=== PATIENT | female | born 1960 | race African-American/Black ===

== ENCOUNTER 2016-10-22 11:41 | Emergency (ER) | payer MEDICAID ==
[~2016-10-22] VITALS: Ht 162.6 cm; Wt 82.0 kg
[2016-10-22 13:08] LABS: BASOPHILS % 1.1 % (0.0-2.0); EOSINOPHILS % 0.4 % (0.0-5.0); HEMATOCRIT. 40.5 % (36.0-48.0); HEMOGLOBIN. 13.7 g/dL (12.0-16.0); LYMPHOCYTES % 39.5 % (20.0-50.0); MEAN CORPUSCULAR HEMOGLOBIN 28.2 pg (28.0-32.0); MEAN CORPUSCULAR VOLUME 83.1 fL (81.0-99.0); MEAN PLATELET VOLUME 8.7 fl (7.4-10.4); PLATELET 219 x1000/uL (130-400); RED BLOOD CELL COUNT 4.88 mill/uL (4.2-5.4); RED CELL DISTRIBUTION WIDTH 14.2 % (11.6-14.6)
[2016-10-22] MEDS ORDERED: HYDRALAZINE 20MG/ML VIAL IV ONE (13:15)
[2016-10-22 13:16] LABS: CLARITY URINE CLEAR (CLEAR); COLOR URINE YELLOW (YELLOW); GLUCOSE URINE 2+ (NEGATIVE); KETONES URINE NEGATIVE (NEGATIVE); LEUKOCYTE ESTERASE URINE NEGATIVE (NEGATIVE); NITRITE URINE NEGATIVE (NEGATIVE); OCCULT BLOOD URINE NEGATIVE (NEGATIVE); PROTEIN URINE NEGATIVE (NEGATIVE); SPECIFIC GRAVITY URINE 1.022 (1.005-1.030); UROBILINOGEN URINE 0.2 E.U./dL (0.2-1.0)
[2016-10-22 13:20] LABS: CARBON DIOXIDE 29 mEq/L (21-32); CHLORIDE 103 mEq/L (98-107)
[2016-10-22 13:26] LABS: TROPONIN I < 0.02 ng/mL (0.00-0.04)
[2016-10-22 17:37] VITALS: BP 182/88
== END 2016-10-22 17:37 | disposition home or self-care (01) ==
LOC: ER 13:40
DX: I10 Essential (primary) hypertension (principal); E11.9 Type 2 diabetes mellitus without complications; Z91.14 Patient's other noncompliance with medication regimen; Z87.891 Personal history of nicotine dependence
CPT/HCPCS: 36415; 71010; 80053; 81001; 83880; 84484; 85025; 93005; 96374; 99285; J0360; Z7610

== ENCOUNTER 2017-02-07 17:41 | Emergency (ER) | payer MEDICAID ==
[~2017-02-07] VITALS: Ht 162.6 cm; Wt 79.0 kg
[2017-02-07 17:58] VITALS: BP 165/90
== END 2017-02-07 23:12 | disposition home or self-care (01) ==
LOC: ER 17:41
DX: M25.562 Pain in left knee (principal); I10 Essential (primary) hypertension; E11.9 Type 2 diabetes mellitus without complications; F17.210 Nicotine dependence, cigarettes, uncomplicated; Z98.51 Tubal ligation status; W01.0XXA Fall on same level from slipping, tripping and stumbling without subsequent striking against object, initial encounter; Y93.41 Activity, dancing; Y92.89 Other specified places as the place of occurrence of the external cause
CPT/HCPCS: 73562; 99284; L1830

== ENCOUNTER 2017-11-24 14:26 | Emergency (ER) | payer MEDICAID ==
[~2017-11-24] VITALS: Ht 162.6 cm; Wt 78.0 kg
[2017-11-24 15:37] LABS: CLARITY URINE CLEAR (CLEAR); COLOR URINE YELLOW (YELLOW); KETONES URINE NEGATIVE (NEGATIVE); LEUKOCYTE ESTERASE URINE 1+ (NEGATIVE); NITRITE URINE NEGATIVE (NEGATIVE); OCCULT BLOOD URINE NEGATIVE (NEGATIVE); PROTEIN URINE NEGATIVE (NEGATIVE); UROBILINOGEN URINE 0.2 E.U./dL (0.2-1.0)
[2017-11-24 16:24] LABS: CHLORIDE 104 mEq/L (98-107)
[2017-11-24 16:26] LABS: BASOPHILS % 0.7 % (0.0-2.0); EOSINOPHILS % 0.5 % (0.0-5.0); HEMATOCRIT. 39.4 % (36.0-48.0); HEMOGLOBIN. 13.3 g/dL (12.0-16.0); MEAN CORPUSCULAR HEMOGLOBIN 28.3 pg (28.0-32.0); MEAN CORPUSCULAR VOLUME 83.7 fL (81.0-99.0); MEAN PLATELET VOLUME 8.4 fl (7.4-10.4); MONOCYTES % 8.2 % (2.0-8.0); NEUTROPHILS % 58.6 % (40.0-76.0); PLATELET 245 x1000/uL (130-400); RED BLOOD CELL COUNT 4.71 mill/uL (4.2-5.4); RED CELL DISTRIBUTION WIDTH 14.4 % (11.6-14.6)
[2017-11-24] MEDS ORDERED: HYDROCHLOROTHIAZIDE 25MG TABLET PO ONE (17:00)
[2017-11-24 17:35] VITALS: BP 174/92
== END 2017-11-24 17:43 | disposition home or self-care (01) ==
LOC: ER 14:38
DX: I10 Essential (primary) hypertension (principal); M54.5 Low back pain; E11.9 Type 2 diabetes mellitus without complications; F17.200 Nicotine dependence, unspecified, uncomplicated; Z98.51 Tubal ligation status
CPT/HCPCS: 36415; 72100; 80048; 81003; 85025; 99285

== ENCOUNTER 2024-12-13 13:17 | Inpatient (IN) | payer OTHER, MEDICARE ==
[~2024-12-13] VITALS: Ht 167.6 cm; Wt 91.0 kg
[2024-12-13 13:26] VITALS: O2SAT 96
[2024-12-13] MEDS: IOHEXOL-350 100 ML BOTTLE ONE ×2 (14:27→14:28)
[2024-12-13 14:32] LABS: BASOPHILS % 1.3 % (0.0-2.0); EOSINOPHILS % 1.8 % (0.0-5.0); HEMATOCRIT. 37.0 % (36.0-48.0); HEMOGLOBIN. 12.5 g/dL (12.0-16.0); LYMPHOCYTES % 37.5 % (20.0-50.0); MEAN PLATELET VOLUME 8.2 fl (7.4-10.4); MONOCYTES % 10.4 % (2.0-8.0); NEUTROPHILS % 49.0 % (40.0-76.0); PLATELET 252 x1000/uL (130-400); RED BLOOD CELL COUNT 4.42 mill/uL (4.2-5.4); RED CELL DISTRIBUTION WIDTH 15.0 % (11.6-14.6)
[2024-12-13 14:45] LABS: INR 1.0
[2024-12-13 14:48] LABS: CREATININE 1.5 mg/dL (0.6-1.0); TROPONIN I HIGH SENSITIVITY 24 ng/L (3.0-34); UREA NITROGEN BLOOD 24 mg/dL (9-23)
[2024-12-13 14:50] LABS: ASPARTATE AMINOTRANSFERASE 14 IU/L (<34)
[2024-12-13 14:51] LABS: BILIRUBIN DIRECT < 0.1 mg/dL (<=3.0); BILIRUBIN TOTAL 0.4 mg/dL (0.1-1.0); PROTEIN TOTAL 6.8 g/dL (6.0-8.3)
[2024-12-13 17:08] LABS: CLARITY URINE CLEAR (CLEAR); COLOR URINE YELLOW (YELLOW); GLUCOSE URINE NEGATIVE (NEGATIVE); KETONES URINE NEGATIVE (NEGATIVE); LEUKOCYTE ESTERASE URINE 1+ (NEGATIVE); NITRITE URINE NEGATIVE (NEGATIVE); OCCULT BLOOD URINE NEGATIVE (NEGATIVE); PH URINE 5.0 (4.5-8.0); PROTEIN URINE 1+ (NEGATIVE); SPECIFIC GRAVITY URINE 1.050 (1.005-1.030); UROBILINOGEN URINE 0.2 E.U./dL (0.2-1.0)
[2024-12-13 17:17] LABS: *AMPHETAMINES SCREEN URINE NEGATIVE (NEGATIVE); *BENZODIAZEPINES SCREEN URINE NEGATIVE (NEGATIVE)
[2024-12-13 17:18] LABS: *BARBITURATES SCREEN URINE NEGATIVE (NEGATIVE); *COCAINE SCREEN URINE NEGATIVE (NEGATIVE); CANNABINOID URINE SCREEN NEGATIVE (NEGATIVE); ECSTASY MDMA SCREEN URINE CONF.TEST INDICATED (NEGATIVE); METHADONE URINE SCREEN NEGATIVE (NEGATIVE); OPIATES URINE SCREEN NEGATIVE (NEGATIVE); PHENCYCLIDINE URINE SCREEN NEGATIVE (NEGATIVE)
[2024-12-13 17:30] VITALS: BP 190/90; PULSE 75; RESP 15; TEMP 36.4; O2SAT 95
[2024-12-13 17:36] LABS: BACTERIA URINE 1+; RBC URINE 0-2 /hpf (0-2); SQUAMOUS EPITHELIAL CELL URINE 1+ /lpf (RARE/1+)
[2024-12-13] MEDS ORDERED: DEXTROSE 50% WATER 50ML SYRINGE IV PRN (21:15)
[2024-12-13] MEDS: ASPIRIN 81MG TABLET PO SCH (22:12)
[2024-12-13] MEDS: AMLODIPINE 10MG TABLET PO SCH (22:12)
[2024-12-13] MEDS: INSULIN GLARGINE 100 UNITS/ML SUBCUT SCH (22:13)
[2024-12-13 23:33] VITALS: BP 158/82; PULSE 75; RESP 18; TEMP 36.418
[2024-12-14] VITALS: BP 176/88; PULSE 76; RESP 18; TEMP 36.4; O2SAT 96
[2024-12-14 03:03] LABS: BASOPHILS % 0.6 % (0.0-2.0); EOSINOPHILS % 2.2 % (0.0-5.0); HEMATOCRIT. 39.4 % (36.0-48.0); HEMOGLOBIN. 12.9 g/dL (12.0-16.0); LYMPHOCYTES % 44.0 % (20.0-50.0); MEAN PLATELET VOLUME 8.6 fl (7.4-10.4); MONOCYTES % 11.9 % (2.0-8.0); NEUTROPHILS % 41.3 % (40.0-76.0); PLATELET 249 x1000/uL (130-400); RED BLOOD CELL COUNT 4.68 mill/uL (4.2-5.4); RED CELL DISTRIBUTION WIDTH 14.9 % (11.6-14.6)
[2024-12-14 04:00] VITALS: BP 135/70; PULSE 75; RESP 18; TEMP 36.6; O2SAT 96
[2024-12-14] MEDS: BLOOD SUGAR DIAGNOSTIC STRIP TEST SCH (07:01)
[2024-12-14 08:00] VITALS: BP 178/87; PULSE 79; RESP 14; TEMP 36.3; O2SAT 95
[2024-12-14] MEDS: LABETALOL HCL 200MG TABLET PO SCH (08:25)
[2024-12-14] MEDS: CLOPIDOGREL 75MG TABLET PO SCH (08:25)
[2024-12-14] MEDS: INSULIN LISPRO 100 UNITS/ML SUBCUT SCH (08:28)
[2024-12-14 12:00] VITALS: BP 158/83; PULSE 72; RESP 17; TEMP 36.3; O2SAT 98
[2024-12-14] MEDS: ENOXAPARIN 40MG/0.4ML SYR SUBCUT SCH (13:32)
[2024-12-14] MEDS: NICOTINE 7MG PATCH TD SCH (13:33)
[2024-12-14 16:00] VITALS: BP 164/86; PULSE 80; RESP 15; TEMP 36.3; O2SAT 96
[2024-12-14 20:00] VITALS: BP 160/89; PULSE 82; RESP 18; TEMP 36.3; O2SAT 7
[2024-12-14] MEDS: ATORVASTATIN CALCIUM 40MG TABLET PO SCH (22:04)
[2024-12-14] MEDS: INSULIN GLARGINE 100 UNITS/ML SUBCUT SCH (22:07)
[2024-12-15] VITALS (9 sets, daily range): BP systolic 129–174; BP diastolic 58–85; PULSE 77–89; RESP 16–18; TEMP 36.1–37; O2SAT 94–97
[2024-12-15] MEDS ORDERED: NICO-786 TD (12:30)
[2024-12-15] MEDS ORDERED: LABE200T9 PO (12:30)
[2024-12-15] MEDS ORDERED: AMLO10TA80 MT (12:30)
[2024-12-15] MEDS ORDERED: ASPI-1406 MT (12:30)
[2024-12-15] MEDS ORDERED: LIP40 PO (12:30)
[2024-12-15] MEDS ORDERED: CLOP-31 PO (12:30)
[2024-12-15] MEDS ORDERED: INSU100I28 SQ (12:30)
[2024-12-15 13:25] LABS: TRIGLYCERIDE 177.0 mg/dL (0-150)
[2024-12-15 13:26] LABS: LDL CHOLESTEROL 132.0 mg/dL (5-100)
[2024-12-15] MEDS ORDERED: CLONIDINE 0.1MG TABLET PO PRN ×2 (18:30→19:00)
== END 2024-12-15 21:10 | disposition home or self-care (01) | DRG 65 ==
LOC: ER 13:17 → 6WST 15:37
PROVIDERS: ADMIT Internal Medicine; ATTEND Internal Medicine
DX: I63.9 Cerebral infarction, unspecified (principal); I69.351 Hemiplegia and hemiparesis following cerebral infarction affecting right dominant side; N17.9 Acute kidney failure, unspecified; D72.819 Decreased white blood cell count, unspecified; E11.22 Type 2 diabetes mellitus with diabetic chronic kidney disease; E11.65 Type 2 diabetes mellitus with hyperglycemia; N18.9 Chronic kidney disease, unspecified; I12.9 Hypertensive chronic kidney disease with stage 1 through stage 4 chronic kidney disease, or unspecified chronic kidney disease; E66.9 Obesity, unspecified; Z79.4 Long term (current) use of insulin; Z79.899 Other long term (current) drug therapy; Z68.32 Body mass index [BMI] 32.0-32.9, adult; E11.40 Type 2 diabetes mellitus with diabetic neuropathy, unspecified; E78.00 Pure hypercholesterolemia, unspecified; F17.210 Nicotine dependence, cigarettes, uncomplicated; I65.23 Occlusion and stenosis of bilateral carotid arteries; Z98.51 Tubal ligation status; I69.392 Facial weakness following cerebral infarction; R13.10 Dysphagia, unspecified; R29.701 NIHSS score 1; Z71.6 Tobacco abuse counseling
CPT/HCPCS: 36415; 70496; 70498; 70551; 71045; 80048; 80061; 80076; 80305; 80320; 81003; 82962; 83880; 84484; 85025; 93005; 93306; 97116; 97162; 97166; 99291; J1650; J1815; Q9967; G0480